=== PATIENT | female | born 1995 | race Caucasian/White ===

== ENCOUNTER 2019-06-16 01:08 | Emergency (ER) | payer OTHER ==
[2019-06-16] MEDS ORDERED: KETOROLAC 30 MG INJ IM (02:00)
[2019-06-16] MEDS: ACETAMINOPHEN 500 MG TAB PO (02:48)
== END 2019-06-16 02:55 | disposition home or self-care (01) ==
LOC: FTE 01:08
DX: G43.909 Migraine, unspecified, not intractable, without status migrainosus (principal)
CPT/HCPCS: 99284; Z7610